=== PATIENT | female | born 1970 | race Caucasian/White ===

== ENCOUNTER → 2017-07-07 | Outpatient (CLI) | payer OTHER ==
--- NOTE | 2017-07-08 11:26 | MM ---
Reason for exam: screening (asymptomatic). Last mammogram was performed 1 year and 5 months ago. History: Patient is postmenopausal and has history of other cancer at age 35. Took hormonal contraceptives for 5 months beginning at age 20. Physical Findings: A clinical breast exam by your physician is recommended on an annual basis and results should be correlated with mammographic findings. MG Screening Mammo w CAD Bilateral CC and MLO view(s) were taken. Prior study comparison: February 01, 2016, bilateral MG screening mammo w CAD. September 19, 2008, right breast diagnostic digital ofe. There are scattered fibroglandular densities. There is chronic nodularity. There is no dominant lesion. No significant changes when compared with prior studies. ASSESSMENT: Benign, BI-RAD 2 RECOMMENDATION: Routine screening mammogram of both breasts in 1 year.
== END | disposition home or self-care (01) ==
LOC: RADMAMWWP 16:33
PROVIDERS: ATTEND Internal Medicine
DX: Z12.31 Encounter for screening mammogram for malignant neoplasm of breast (principal)
CPT/HCPCS: 77067

== ENCOUNTER 2017-07-29 10:26 | Day surgery (SDC) | payer OTHER ==
[2017-07-25 16:31] VITALS: BMI 37.1
[2017-07-29] MEDS ORDERED: LIDOCAINE 1% 20 ML VIAL (10MG/ML) FOR IV START INTRADERMA ONE (11:24)
[2017-07-29] MEDS: LACTATED RINGERS 1,000 ML IV SCH ×2 (11:24→12:22)
[2017-07-29 11:36] VITALS: RESP 16; TEMP 97
[2017-07-29] MEDS ORDERED: LIDOCAINE 1% INJ 10MG/ML (20 ML MDV) ONE (12:23)
[2017-07-29] MEDS ORDERED: PROPOFOL 10 MG/ML 20 ML VIAL IV ONE (12:23)
[2017-07-29] MEDS ORDERED: GLYCOPYRROLATE 0.2 MG/ML 2 ML VIAL ONE (12:23)
--- NOTE | 2017-07-29 13:12 | P.PCN ---
Date of Procedure: 07/29/17 Procedure(s) Performed: Procedure: 1. Esophagogastroduodenoscopy and biopsy. 2. Colonoscopy and biopsy. Preoperative diagnosis: Chronic diarrhea. Postoperative diagnosis: 1. Small sliding hiatal hernia with no obvious esophagitis or complicated reflux disease. 2. Mild gastritis and duodenitis. 3. Sigmoid diverticulosis but no evidence of diverticulitis or strictures. 4. 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 5. No polyps or tumors seen area biopsies obtained from the duodenum, antrum, esophagus, terminal ileum, right colon and sigmoid. Preparation: HalfLytely prep. Sedation: Was provided by anesthesia. Brief clinical history: The patient is a 47-year-old female who is scheduled for this evaluation because of issues with constant diarrhea over the last several months. Apparently, she had issues with diarrhea on and off since radiation therapy for cervical cancer several years ago, but this is now a constant daily problem. Procedure: With the patient on her left lateral decubitus position and after informed consent and adequate sedation, I passed the Olympus-GIF 160 video upper endoscope through the cricopharyngeus down the esophagus. GE junction was around 40 cm from the incisors and there was a small sliding hiatal hernia. No definite esophagitis or complicated reflux disease. The endoscope was then passed into the stomach which was insufflated with air and inspected in detail including the retroflex view in the cardia. There was some mottling and erythema in the antrum but no ulcers or erosions. Pyloric channel did not show any ulcers. Duodenal bulb showed erythema and some mucosal hemorrhages and a rare erosion but no ulcers or bleeding. Post bulbar area and descending duodenum appeared within normal limits. I obtained biopsies from the duodenum, antrum and esophagus then the endoscope was withdrawn and I proceeded with the colonoscopy. Perianal area did not show any fissures or fistulas. There were no masses felt on digital rectal examination. The Olympus CFQ 160L video colonoscope was then inserted in the rectum in the usual fashion and advanced, however, I was not able to advance it safely in the sigmoid so I exchanged it for the pediatric PCF Q180 AL videocolonoscope which was advanced without difficulty to the cecum. I intubated the ileocecal valve and examined the terminal ileum as well. There was mild sigmoid diverticulosis noted and some minimal erythema and friability in the sigmoid that could represent radiation colitis. No polyps or tumors were seen. I obtained biopsies from the terminal ileum, right colon and sigmoid before the endoscope was withdrawn. The patient tolerated the procedure well. Plan: The patient was reassured. Will await pathology results and make further plans based on her course and biopsy results. She will follow-up with you as planned and I will keep you updated on her progress.
[2017-07-29 13:39] VITALS: BP 153/70; PULSE 76
== END 2017-07-29 14:05 | disposition home or self-care (01) ==
LOC: ORWHC2ENDO 10:26
DX: K29.50 Unspecified chronic gastritis without bleeding (principal); K20.9 Esophagitis, unspecified; K52.9 Noninfective gastroenteritis and colitis, unspecified; K44.9 Diaphragmatic hernia without obstruction or gangrene; K57.30 Diverticulosis of large intestine without perforation or abscess without bleeding; K29.80 Duodenitis without bleeding; Z85.41 Personal history of malignant neoplasm of cervix uteri; Z92.3 Personal history of irradiation; Z88.0 Allergy status to penicillin; Z88.8 Allergy status to other drugs, medicaments and biological substances; F17.210 Nicotine dependence, cigarettes, uncomplicated
CPT/HCPCS: 88305; 45380; 43239; J2001; J2704

== ENCOUNTER → 2018-08-27 | Outpatient (CLI) | payer OTHER ==
--- NOTE | 2018-08-28 12:29 | MM ---
Reason for exam: screening (asymptomatic). Last mammogram was performed 1 year and 2 months ago. History: Patient is postmenopausal and has history of other cancer at age 35. Took hormonal contraceptives for 5 months beginning at age 20. Physical Findings: A clinical breast exam by your physician is recommended on an annual basis and results should be correlated with mammographic findings. MG Screening Mammo w CAD Bilateral CC and MLO view(s) were taken. Prior study comparison: July 07, 2017, bilateral MG screening mammo w CAD. February 01, 2016, bilateral MG screening mammo w CAD. There is chronic nodularity in the right breast. No significant changes when compared with prior studies. ASSESSMENT: Benign, BI-RAD 2 RECOMMENDATION: Routine screening mammogram of both breasts in 1 year.
== END | disposition home or self-care (01) ==
LOC: RADMAMWWP 14:44
PROVIDERS: ATTEND Internal Medicine
DX: Z12.31 Encounter for screening mammogram for malignant neoplasm of breast (principal)
CPT/HCPCS: 77067

== ENCOUNTER → 2020-03-24 | Outpatient (CLI) | payer OTHER ==
--- NOTE | 2020-03-24 17:44 | CT ---
EXAMINATION TYPE: CT abdomen pelvis w con DATE OF EXAM: 03/24/2020 COMPARISON: None HISTORY: Follow up for cervical cancer. CT DLP: 1784 mGycm Automated exposure control for dose reduction was used. TECHNIQUE: Helical acquisition of images was performed from the lung bases through the pelvis. CONTRAST: Performed with Oral Contrast and with IV Contrast, patient injected with 100ml mL of Isovue 300. FINDINGS: LUNG BASES: Normal. LIVER: Too small to characterize hypodense lesion of the left lobe (3:18). BILIARY SYSTEM: Status post cholecystectomy. No intrahepatic or extrahepatic biliary ductal dilatatio n. PANCREAS: Normal. SPLEEN: Normal. ADRENALS: Normal. KIDNEYS: No hydronephrosis or hydroureter bilaterally. Bilateral renal cysts and too small to charact erize hypodense lesions. BOWEL: No obstruction or thickening. There is mucosal fat the rectum which is likely related to post treatment change. Sigmoid colon diverticulosis. No acute diverticulitis. Normal appendix. PERITONEUM: No pneumoperitoneum. No free fluid. LYMPH NODES: No lymphadenopathy. PELVIS: Underdistended urinary bladder. Unremarkable uterus and adnexa. VASCULATURE: No abdominal aortic aneurysm. MUSCULOSKELETAL: Degenerative changes of the spine. No aggressive osseous destructive lesions. IMPRESSION: No evidence of recurrent or metastatic cervical cancer of the abdomen or pelvis.
== END | disposition home or self-care (01) ==
LOC: RADCTMAIN 13:50
PROVIDERS: ATTEND Obstetrics & Gynecology
DX: C53.9 Malignant neoplasm of cervix uteri, unspecified (principal)
CPT/HCPCS: 74177; Q9967

== ENCOUNTER → 2020-04-07 | Outpatient (CLI) | payer OTHER ==
--- NOTE | 2020-04-10 09:23 | MM ---
Reason for exam: screening (asymptomatic). Last mammogram was performed 1 year and 7 months ago. History: Patient is postmenopausal and has history of other cancer at age 35. Took hormonal contraceptives for 5 months beginning at age 20. Physical Findings: A clinical breast exam by your physician is recommended on an annual basis and results should be correlated with mammographic findings. MG Screening Mammo w CAD Bilateral CC and MLO view(s) were taken. Prior study comparison: August 27, 2018, bilateral MG screening mammo w CAD. July 07, 2017, bilateral MG screening mammo w CAD. There are scattered fibroglandular densities. Benign appearing calcifications in the left breast. There is chronic nodularity in the right breast. No significant changes when compared with prior studies. ASSESSMENT: Benign, BI-RAD 2 RECOMMENDATION: Routine screening mammogram of both breasts in 1 year.
== END | disposition home or self-care (01) ==
LOC: RADMAMWWP 10:38
PROVIDERS: ATTEND Obstetrics & Gynecology
DX: Z12.31 Encounter for screening mammogram for malignant neoplasm of breast (principal)
CPT/HCPCS: 77067

== ENCOUNTER → 2020-09-20 | Outpatient (CLI) | payer OTHER ==
--- NOTE | 2020-09-20 10:29 | XR ---
EXAMINATION TYPE: XR Hip Complete RT DATE OF EXAM: 09/20/2020 COMPARISON: NONE HISTORY: Pain TECHNIQUE: 2 views submitted FINDINGS: There is no evidence of erosive change or acute fracture. Small spur extending off the lower margin o f the greater trochanter. Nonspherical morphology of the femoral head can occasionally be associated with femoral acetabular impingement IMPRESSION: 1. Question femoral acetabular impingement consider follow-up.
== END | disposition home or self-care (01) ==
LOC: RADXRMAIN 10:04
PROVIDERS: ATTEND Family Medicine
DX: M25.551 Pain in right hip (principal)
CPT/HCPCS: 73502

== ENCOUNTER 2020-11-11 14:36 | Emergency (ER) | payer OTHER ==
[2020-11-11] MEDS ORDERED: ACET/COD 300 MG/30 MG STARTER PACK 6 TAB BTL PO STA (16:01)
--- NOTE | 2020-11-11 16:10 | ED ---
General Adult HPI - General Chief complaint: Urogenital Stated complaint: hamstring pain Source: patient, RN notes reviewed Mode of arrival: ambulatory Limitations: no limitations - History of Present Illness Initial comments: 50-year-old white female presents to the emergency room for refill on her hydrocodone. Patient states that she last had a prescription filled on October 18 and is out of medication. Patient states that Dr. Carrasco told her that she could take medication every 3 hours and now she is out. Motrin is not helping with her pain. Patient has a history of a vaginal tumor that is being addressed by [facility] and has scheduled appointments at the end of the month. Patient has an indwelling suprpubic catheter in place that was placed on october 04. Was seeing Dr. Carrasco but lost her insurance and is now assigned to Dr. Link who is unable to prescribe her any pain medications. Patient states that she's having difficulty sleeping at night because of the pain and needs something other than Motrin to help her. She denies fevers, no shortness of breath no chest pain or abdominal pain. She does state that her urine is more bloody today but has been already and then clear and then bloody again over the past month. She has a surgical history of a cholecystectomy and tubal ligation and is waiting for treatment of vaginal tumor. -: month(s) (1) Severity scale (1-10): 7 Consistency: constant Improves with: medication (norco) Worsens with: none Associated Symptoms: denies other symptoms Treatments Prior to Arrival: none - Related Data Home Medications Medication Instructions Recorded Confirmed Ergocalciferol [Vitamin D2] 50,000 unit PO FR 07/25/17 07/29/17 Previous Rx's Medication Instructions Recorded Sulfamethox-Tmp 800-160Mg [Bactrim 1 each PO Q12HR 10 Days #20 tab 11/11/20 Ds] Allergies Allergy/AdvReac Type Severity Reaction Status Date / Time cisplatin Allergy Anaphylaxis Verified 11/11/20 14:42 Penicillins Allergy Anaphylaxis Verified 11/11/20 14:42 Review of Systems ROS Statement: Those systems with pertinent positive or pertinent negative responses have been documented in the HPI. ROS Other: All systems not noted in ROS Statement are negative. Past Medical History Past Medical History: Cancer Additional Past Medical History / Comment(s): CERVICAL CANCER-CHEMO AND RADIATION 2006. HAS BEEN HAVING CHRONIC DIARRHEA FOR SEVERAL MONTHS History of Any Multi-Drug Resistant Organisms: None Reported Past Surgical History: Cholecystectomy, Tubal Ligation Past Anesthesia/Blood Transfusion Reactions: No Reported Reaction Past Psychological History: No Psychological Hx Reported Past Alcohol Use History: None Reported Past Drug Use History: None Reported - Past Family History Brother(s) Family Medical History: Cancer Father Family Medical History: Cancer General Exam Limitations: no limitations General appearance: alert, in no apparent distress Head exam: Present: atraumatic, normocephalic, normal inspection Eye exam: Present: normal appearance, PERRL, EOMI. Absent: scleral icterus, conjunctival injection, periorbital swelling Pupils: Present: normal accommodation ENT exam: Present: normal exam, normal oropharynx, mucous membranes moist Neck exam: Present: normal inspection. Absent: tenderness, meningismus, lymphadenopathy Respiratory exam: Present: normal lung sounds bilaterally, decreased breath sounds. Absent: respiratory distress, wheezes, rales, rhonchi, stridor, chest wall tenderness Cardiovascular Exam: Present: normal rhythm, tachycardia, normal heart sounds. Absent: systolic murmur, diastolic murmur, rubs, gallop, clicks GI/Abdominal exam: Present: soft, normal bowel sounds, other (Suprapubic Mcleod catheter, draining bloody urine). Absent: distended, tenderness, guarding, re bound, rigid Back exam: Present: normal inspection, full ROM. Absent: tenderness, CVA tenderness (R), CVA tenderness (L), muscle spasm, paraspinal tenderness, vertebral tenderness, rash noted Neurological exam: Present: alert, oriented X3, CN II-XII intact Expanded Patient oriented to: Present: person, place, time Speech: Present: fluid speech Eye Response: (4) open spontaneously Motor Response: (6) obeys commands Verbal Response: (5) oriented Pratima Total: 15 Psychiatric exam: Present: normal affect, normal mood Skin exam: Present: warm, dry, intact, normal color. Absent: rash, cyanosis, diaphoretic, erythema, petechiae, pallor, mottled Course Vital Signs 11/11/20 11/11/20 11/11/20 14:37 17:26 18:30 Temperature 98.1 F 98.3 F Pulse Rate 111 H 69 70 Respiratory 18 16 18 Rate Blood Pressure 190/101 159/83 169/98 O2 Sat by Pulse 99 98 98 Oximetry - Reevaluation(s) Reevaluation #1: 11/11/20 17:28 Patient offered morphine but declined at this time states she has to drive home. States she is not want to be admitted to the hospital Time: 17:28 Medical Decision Making - Medical Decision Making Patient able ambulate with a steady gait. 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 vaginal tumor is being addressed by [facility] in [address] and patient is waiting for her scheduled appointment dates. Patient is here today for refill of pain medication however upon exam, patient with hematuria and was sent for evaluation due to increased need for pain medication. She was found to have greater than 182 WBCs in her urine. CBC is 11.3 hemoglobin and hematocrit is 11 and 32. Patient will be treated with Bactrim for UTI. Restrictions for narcotic prescriptions explained to patient and advised that we will provide her with Tylenol 3 starter pack but she must follow up with primary care doctor for continuation of care. Patient agreeable to this plan. Patient will also be given a referral to pain specialist. Case discussed with Dr alexandre - Lab Data Result diagrams: 11/11/20 17:14 11/11/20 17:14 Lab Results 11/11/20 11/11/20 11/11/20 Range/Units 16:14 17:14 17:14 WBC 11.3 H (3.8-10.6) k/uL RBC 3.80 (3.80-5.40) m/uL Hgb 11.4 (11.4-16.0) gm/dL Hct 32.5 L (34.0-46.0) % MCV 85.6 (80.0-100.0) fL MCH 29.9 (25.0-35.0) pg MCHC 34.9 (31.0-37.0) g/dL RDW 13.8 (11.5-15.5) % Plt Count 342 (150-450) k/uL MPV 7.1 Neutrophils % 75 % Lymphocytes % 16 % Monocytes % 5 % Eosinophils % 3 % Basophils % 1 % Neutrophils # 8.4 H (1.3-7.7) k/uL Lymphocytes # 1.8 (1.0-4.8) k/uL Monocytes # 0.6 (0-1.0) k/uL Eosinophils # 0.4 (0-0.7) k/uL Basophils # 0.1 (0-0.2) k/uL PT (9.0-12.0) sec INR (<1.2) APTT (22.0-30.0) sec Sodium 141 (137-145) mmol/L Potassium 3.3 L (3.5-5.1) mmol/L Chloride 107 (98-107) mmol/L Carbon Dioxide 29 (22-30) mmol/L Anion Gap 5 mmol/L BUN 13 (7-17) mg/dL Creatinine 0.67 (0.52-1.04) mg/dL Est GFR (CKD-EPI)AfAm >90 (>60 ml/min/1.73 sqM) Est GFR (CKD-EPI)NonAf >90 (>60 ml/min/1.73 sqM) Glucose 97 (74-99) mg/dL Plasma Lactic Acid Wade (0.7-2.0) mmol/L Calcium 8.6 (8.4-10.2) mg/dL Total Bilirubin 0.3 (0.2-1.3) mg/dL AST 20 (14-36) U/L ALT 12 (4-34) U/L Alkaline Phosphatase 90 (38-126) U/L Total Protein 6.3 (6.3-8.2) g/dL Albumin 3.5 (3.5-5.0) g/dL Amylase 110 (30-110) U/L Lipase 60 (23-300) U/L Urine Color Red Urine Appearance Bloody H (Clear) Urine RBC >182 H (0-5) /hpf Urine WBC >182 H (0-5) /hpf 11/11/20 11/11/20 Range/Units 17:14 17:14 WBC (3.8-10.6) k/uL RBC (3.80-5.40) m/uL Hgb (11.4-16.0) gm/dL Hct (34.0-46.0) % MCV (80.0-100.0) fL MCH (25.0-35.0) pg MCHC (31.0-37.0) g/dL RDW (11.5-15.5) % Plt Count (150-450) k/uL MPV Neutrophils % % Lymphocytes % % Monocytes % % Eosinophils % % Basophils % % Neutrophils # (1.3-7.7) k/uL Lymphocytes # (1.0-4.8) k/uL Monocytes # (0-1.0) k/uL Eosinophils # (0-0.7) k/uL Basophils # (0-0.2) k/uL PT 11.3 (9.0-12.0) sec INR 1.1 (<1.2) APTT 23.0 (22.0-30.0) sec Sodium (137-145) mmol/L Potassium (3.5-5.1) mmol/L Chloride (98-107) mmol/L Carbon Dioxide (22-30) mmol/L Anion Gap mmol/L BUN (7-17) mg/dL Creatinine (0.52-1.04) mg/dL Est GFR (CKD-EPI)AfAm (>60 ml/min/1.73 sqM) Est GFR (CKD-EPI)NonAf (>60 ml/min/1.73 sqM) Glucose (74-99) mg/dL Plasma Lactic Acid Wade 1.2 (0.7-2.0) mmol/L Calcium (8.4-10.2) mg/dL Total Bilirubin (0.2-1.3) mg/dL AST (14-36) U/L ALT (4-34) U/L Alkaline Phosphatase (38-126) U/L Total Protein (6.3-8.2) g/dL Albumin (3.5-5.0) g/dL Amylase (30-110) U/L Lipase (23-300) U/L Urine Color Urine Appearance (Clear) Urine RBC (0-5) /hpf Urine WBC (0-5) /hpf Disposition Clinical Impression: Chronic pain, Urinary tract infection Disposition: HOME SELF-CARE Condition: Fair Instructions (If sedation given, give patient instructions): Urinary Tract Infection in Women (ED) Additional Instructions: Take medication as prescribed and follow-up with your primary care doctor this week. Call pain specialist as referred for continuation of pain management. Prescriptions: Sulfamethox-Tmp 800-160Mg [Bactrim Ds] 1 each PO Q12HR 10 Days #20 tab Is patient prescribed a controlled substance at d/c from ED?: No Referrals: Cristian Kennedy MD [Primary Care Provider] - 1-2 days Lucila Sims MD [STAFF PHYSICIAN] - 1-2 days Time of Disposition: 18:54
[2020-11-11 16:31] LABS: RBC,Urine >182 /hpf (0-5); WBC,Urine >182 /hpf (0-5)
[2020-11-11 16:32] LABS: Appearance,Urine Bloody (Clear); Color,Urine Red
[2020-11-11] MEDS ORDERED: SODIUM CHLORIDE 0.9% 1,000 ML IV STA (16:59)
[2020-11-11] MEDS ORDERED: KETOROLAC 15 MG/ML 1 ML VIAL IVP STA (17:27)
[2020-11-11] MEDS ORDERED: KETOROLAC 15 MG/ML 1 ML VIAL ONE (17:29)
[2020-11-11 17:35] LABS: Basophils # (A) 0.1 k/uL (0-0.2); Basophils % (A) 1 %; Eosinophils # (A) 0.4 k/uL (0-0.7); Eosinophils % (A) 3 %; HCT 32.5 % (34.0-46.0); HGB 11.4 gm/dL (11.4-16.0); Lymphocytes # (A) 1.8 k/uL (1.0-4.8); Lymphocytes % (A) 16 %; MCH 29.9 pg (25.0-35.0); MCHC 34.9 g/dL (31.0-37.0); MCV 85.6 fL (80.0-100.0); Mean Platelet Volume 7.1; Monocytes # (A) 0.6 k/uL (0-1.0); Monocytes % (A) 5 %; Neutrophils # (A) 8.4 k/uL (1.3-7.7); Neutrophils % (A) 75 %; Platelet Count 342 k/uL (150-450); RDW 13.8 % (11.5-15.5); WBC 11.3 k/uL (3.8-10.6)
[2020-11-11 17:48] LABS: INR 1.1 (<1.2); Prothrombin Time 11.3 sec (9.0-12.0)
[2020-11-11 17:51] LABS: ALT 12 U/L (4-34); AST 20 U/L (14-36); African American GFR (CKD) >90 (>60 ml/min/1.73 sqM); Albumin 3.5 g/dL (3.5-5.0); Alkaline Phosphatase 90 U/L (38-126); Amylase 110 U/L (30-110); Anion Gap 5 mmol/L; Blood Urea Nitrogen 13 mg/dL (7-17); Calcium 8.6 mg/dL (8.4-10.2); Carbon Dioxide 29 mmol/L (22-30); Chloride 107 mmol/L (98-107); Glucose 97 mg/dL (74-99); Lipase 60 U/L (23-300); Non-African American GFR(CKD) >90 (>60 ml/min/1.73 sqM); Potassium 3.3 mmol/L (3.5-5.1); Sodium 141 mmol/L (137-145); Total Bilirubin 0.3 mg/dL (0.2-1.3); Total Protein 6.3 g/dL (6.3-8.2)
[2020-11-11 18:32] VITALS: BP 169/98; PULSE 70; RESP 18; TEMP 98.3
== END 2020-11-11 19:05 | disposition home or self-care (01) ==
LOC: EC 14:36
DX: G89.29 Other chronic pain (principal); N39.0 Urinary tract infection, site not specified; Z88.0 Allergy status to penicillin; Z88.8 Allergy status to other drugs, medicaments and biological substances
CPT/HCPCS: 99283; 96374; 96361; 36415; 80053; 82150; 83605; 83690; 85025; 85610; 85730; 81001; 87086; J1885

== ENCOUNTER 2020-12-22 01:20 | Emergency (ER) | payer OTHER ==
[2020-12-22] MEDS ORDERED: HYDROmorphone 1 MG/ML 1 ML SYRINGE IM STA (02:04)
--- NOTE | 2020-12-22 02:07 | ED ---
General Adult HPI - General Chief complaint: Urogenital Stated complaint: Abd Pain Time Seen by Provider: 12/22/20 01:36 Source: patient, family Mode of arrival: ambulatory Limitations: no limitations - History of Present Illness Initial comments: 50 year-old female patient presents to the emergency department for evaluation of vaginal pain. 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 Patient states that she is out of her home pain medication. States that her physician gave her a new prescription but her pharmacy would not fill it until 01/02/21. Patient states that she has been taking 7 tablets per day to control her pain. States that she is now completely out and has a PET scan in the morning and does not feel that she will be able to tolerate the ride and testing without something for pain. Patient denies any change to her pain or new symptoms. States that [facility] in [place] will be formulating treatment plan after the PET scan. Denies any fever or chills. Denies nausea or vomiting. - Related Data Home Medications Medication Instructions Recorded Confirmed Ergocalciferol [Vitamin D2] 50,000 unit PO FR 07/25/17 07/29/17 Previous Rx's Medication Instructions Recorded Sulfamethox-Tmp 800-160Mg [Bactrim 1 each PO Q12HR 10 Days #20 tab 11/11/20 Ds] Allergies Allergy/AdvReac Type Severity Reaction Status Date / Time cisplatin Allergy Anaphylaxis Verified 12/22/20 01:27 Penicillins Allergy Anaphylaxis Verified 12/22/20 01:27 Sulfa (Sulfonamide Allergy Unknown Verified 12/22/20 01:27 Antibiotics) Review of Systems ROS Statement: Those systems with pertinent positive or pertinent negative responses have been documented in the HPI. ROS Other: All systems not noted in ROS Statement are negative. Past Medical History Past Medical History: Cancer Additional Past Medical History / Comment(s): CERVICAL CANCER-CHEMO AND RADIATION 2006. HAS BEEN HAVING CHRONIC DIARRHEA FOR SEVERAL MONTHS History of Any Multi-Drug Resistant Organisms: MRSA Date of last positivie culture/infection: 11/11/20 MDRO Source:: URINE MRSA Past Surgical History: Cholecystectomy, Tubal Ligation Past Anesthesia/Blood Transfusion Reactions: No Reported Reaction Past Psychological History: No Psychological Hx Reported Smoking Status: Current every day smoker Past Alcohol Use History: None Reported Past Drug Use History: Marijuana - Past Family History Brother(s) Family Medical History: Cancer Father Family Medical History: Cancer General Exam Limitations: no limitations General appearance: alert, in no apparent distress, other (Physical well- developed, well-nourished adult female patient in no acute distress. Vital signs upon presentation are temperature 98.3F, pulse 107, respirations 22, blood pressure 175/102, pulse ox 99% on room air.) Respiratory exam: Present: normal lung sounds bilaterally. Absent: respiratory distress, wheezes, rales, rhonchi, stridor Cardiovascular Exam: Present: regular rate, normal rhythm, normal heart sounds. Absent: systolic murmur, diastolic murmur, rubs, gallop, clicks GI/Abdominal exam: Present: soft, tenderness (Lower abdominal), normal bowel sounds, other (Suprapubic catheter). Absent: distended, guarding, rebound, r igid Neurological exam: Present: alert, oriented X3, CN II-XII intact Psychiatric exam: Present: normal affect, normal mood Skin exam: Present: warm, dry, intact, normal color. Absent: rash Course Vital Signs 12/22/20 12/22/20 01:22 02:24 Temperature 98.3 F Pulse Rate 107 H 84 Respiratory 22 18 Rate Blood Pressure 175/102 171/78 O2 Sat by Pulse 99 100 Oximetry Medical Decision Making - Medical Decision Making 50-year-old female patient presents requesting pain medication. Patient has known vaginal tumors currently being evaluated by [facility] for treatment. Patient is out of her home pain medication. Denies any new or concerning symptoms today. States she is here solely for pain medication so she is able to get to a PET scan appointment in the morning. Patient will be given 1 mg of Dil audid IM. We'll place fentanyl patch. I did have a long discussion with patient regarding fentanyl patch and the risks. She assures me she has indeed been taking the percocet as prescribed. This would make her opioid tolerant and there is minimal risk with the patch. She is instructed to follow-up with her primary care physician as soon as possible for further evaluation and to determine course of action regarding her pain. Return parameters are discussed in detail. She verbalizes understanding and agrees with this plan. Case discussed with my attending Dr. Jaimes. Disposition Clinical Impression: Vaginal pain, Medication refill Disposition: HOME SELF-CARE Condition: Good Instructions (If sedation given, give patient instructions): Chronic Pain (ED) Additional Instructions: Follow up with your primary care physician for recheck in 1-2 days. Return for any new, worsening, or concerning symptoms. Is patient prescribed a controlled substance at d/c from ED?: No Referrals: Ayush Carrasco Jr, [Primary Care Provider] - 1-2 days Time of Disposition: 02:07
[2020-12-22 02:26] VITALS: RESP 18
[2020-12-22 02:54] VITALS: BP 153/86; PULSE 78; TEMP 99.1
== END 2020-12-22 02:40 | disposition home or self-care (01) ==
LOC: EC 01:20
DX: R10.2 Pelvic and perineal pain (principal); F17.200 Nicotine dependence, unspecified, uncomplicated; Z76.0 Encounter for issue of repeat prescription; Z88.0 Allergy status to penicillin; Z88.2 Allergy status to sulfonamides; Z90.49 Acquired absence of other specified parts of digestive tract; Z88.8 Allergy status to other drugs, medicaments and biological substances
CPT/HCPCS: 96372; 99283

== ENCOUNTER 2020-12-24 21:40 | Emergency (ER) | payer OTHER ==
[2020-12-24 21:51] VITALS: BP 148/85; PULSE 118; RESP 20; TEMP 98.2
--- NOTE | 2020-12-24 22:02 | ED ---
Recheck HPI - General Chief Complaint: Recheck/Abnormal Lab/Rx Stated Complaint: Pain,Hx Malignant Tumor Time Seen by Provider: 12/24/20 21:52 Source: patient, family Mode of arrival: ambulatory Limitations: no limitations - History of Present Illness Initial Comments: 50-year-old female patient presents the emergency department today requesting a change to her fentanyl patch. 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 States she is out of her home pain medication. States her physician gave her new prescription but the pharmacy will not fill it until 01/02/21. She was seen here and evaluated early Friday morning but she hasn't been unable to contact her physician through the weekend so she is requesting another patch until she is able to see them tomorrow. Patient generally takes 7 Percocet tablets per day to control her pain. She is now completely out. She denies any change to her pain or new symptoms. States the fentanyl patch did help her pain. Denies any fever or chills. Denies nausea or vomiting. - Related Data Home Medications Medication Instructions Recorded Confirmed Ergocalciferol [Vitamin D2] 50,000 unit PO FR 07/25/17 07/29/17 Previous Rx's Medication Instructions Recorded Sulfamethox-Tmp 800-160Mg [Bactrim 1 each PO Q12HR 10 Days #20 tab 11/11/20 Ds] Allergies Allergy/AdvReac Type Severity Reaction Status Date / Time cisplatin Allergy Anaphylaxis Verified 12/22/20 01:27 Penicillins Allergy Anaphylaxis Verified 12/22/20 01:27 Sulfa (Sulfonamide Allergy Unknown Verified 12/22/20 01:27 Antibiotics) Review of Systems ROS Statement: Those systems with pertinent positive or pertinent negative responses have been documented in the HPI. ROS Other: All systems not noted in ROS Statement are negative. Past Medical History Past Medical History: Cancer Additional Past Medical History / Comment(s): CERVICAL CANCER-CHEMO AND RADIATION 2006. HAS BEEN HAVING CHRONIC DIARRHEA FOR SEVERAL MONTHS History of Any Multi-Drug Resistant Organisms: MRSA Date of last positivie culture/infection: 11/11/20 MDRO Source:: URINE MRSA Past Surgical History: Cholecystectomy, Tubal Ligation Past Anesthesia/Blood Transfusion Reactions: No Reported Reaction Past Psychological History: No Psychological Hx Reported Smoking Status: Current every day smoker Past Alcohol Use History: None Reported Past Drug Use History: Marijuana - Past Family History Brother(s) Family Medical History: Cancer Father Family Medical History: Cancer General Exam Limitations: no limitations General appearance: alert, in no apparent distress, other (Physical well- developed, well-nourished adult female patient in no acute distress. Vital signs upon presentation temperature 98.2F, pulse 118, respirations 20, blood pressure 148/85, pulse ox 95% on room air.) Eye exam: Present: normal appearance, PERRL, EOMI. Absent: scleral icterus, conjunctival injection, periorbital swelling ENT exam: Present: normal exam, normal oropharynx, mucous membranes moist Respiratory exam: Present: normal lung sounds bilaterally. Absent: respiratory distress, wheezes, rales, rhonchi, stridor Cardiovascular Exam: Present: regular rate, normal rhythm, normal heart sounds. Absent: systolic murmur, diastolic murmur, rubs, gallop, clicks GI/Abdominal exam: Present: soft, tenderness (Lower abdominal), normal bowel sounds. Absent: distended, guarding, rebound, rigid Neurological exam: Present: alert, oriented X3, CN II-XII intact Psychiatric exam: Present: normal affect, normal mood Skin exam: Present: warm, dry, intact, normal color. Absent: rash Course Vital Signs 12/24/20 21:45 Temperature 98.2 F Pulse Rate 118 H Respiratory 20 Rate Blood Pressure 148/85 O2 Sat by Pulse 95 Oximetry Medical Decision Making - Medical Decision Making 50-year-old female patient presented requesting change to fentanyl patch. She has known vaginal tumors currently being evaluated by [facility] for treatment. She is out of her pain medication. Denies any new or concerning symptoms today. She is here solely for pain medication until she is able to reach her physician in the morning. She is instructed to follow-up with her doctor as soon as possible. Return parameters discussed in detail. She verbalizes understanding and agrees with this plan. Case discussed with my attending Dr. Jaimes. Disposition Clinical Impression: Vaginal pain Disposition: HOME SELF-CARE Condition: Good Instructions (If sedation given, give patient instructions): Pain Management (ED) Additional Instructions: Follow-up with your primary care physician tomorrow. Return for any new, w orsening, or concerning symptoms. Is patient prescribed a controlled substance at d/c from ED?: No Referrals: Ayush Carrasco Jr, [Primary Care Provider] - 1-2 days Time of Disposition: 22:02
[2020-12-24] MEDS ORDERED: HYDROmorphone 1 MG/ML 1 ML SYRINGE IM STA (22:27)
== END 2020-12-24 22:37 | disposition home or self-care (01) ==
LOC: EC 21:40
DX: R10.2 Pelvic and perineal pain (principal); F17.200 Nicotine dependence, unspecified, uncomplicated; Z88.0 Allergy status to penicillin; Z88.2 Allergy status to sulfonamides; Z88.8 Allergy status to other drugs, medicaments and biological substances
CPT/HCPCS: 99283; 96372; J1170

== ENCOUNTER 2020-12-27 23:29 | Emergency (ER) | payer OTHER ==
[2020-12-27 23:43] VITALS: TEMP 98.8
--- NOTE | 2020-12-28 01:27 | ED ---
Recheck HPI - General Chief Complaint: Recheck/Abnormal Lab/Rx Stated Complaint: Recheck urogenital, pain rx refill Time Seen by Provider: 12/28/20 01:16 Source: patient Mode of arrival: ambulatory Limitations: no limitations - History of Present Illness Initial Comments: 50-year-old female patient presents to the emergency department today requesting an change to her fentanyl patch. Patient has vaginal pain with known vaginal tumor which is causing her pain. She follows with [facility] in [place]. States she is out of her home medication is waiting for her physician's office to give prior authorization for her prescriptions. States she was prescribed oxycodone and 100 g fentanyl patches 2 days ago. Patient states she is completely out of her Percocet at home. She denies any change to her pain or new symptoms. Denies any fever or chills. Denies nausea or vomiting. - Related Data Home Medications Medication Instructions Recorded Confirmed Ergocalciferol [Vitamin D2] 50,000 unit PO FR 07/25/17 07/29/17 Previous Rx's Medication Instructions Recorded Sulfamethox-Tmp 800-160Mg [Bactrim 1 each PO Q12HR 10 Days #20 tab 11/11/20 Ds] Allergies Allergy/AdvReac Type Severity Reaction Status Date / Time cisplatin Allergy Anaphylaxis Verified 12/27/20 23:40 Penicillins Allergy Anaphylaxis Verified 12/27/20 23:40 Sulfa (Sulfonamide Allergy Unknown Verified 12/27/20 23:40 Antibiotics) Review of Systems ROS Statement: Those systems with pertinent positive or pertinent negative responses have been documented in the HPI. ROS Other: All systems not noted in ROS Statement are negative. Past Medical History Past Medical History: Cancer Additional Past Medical History / Comment(s): CERVICAL CANCER-CHEMO AND RADIATION 2006. HAS BEEN HAVING CHRONIC DIARRHEA FOR SEVERAL MONTHS History of Any Multi-Drug Resistant Organisms: MRSA Date of last positivie culture/infection: 11/11/20 MDRO Source:: URINE MRSA Past Surgical History: Cholecystectomy, Tubal Ligation Past Anesthesia/Blood Transfusion Reactions: No Reported Reaction Past Psychological History: No Psychological Hx Reported Smoking Status: Current every day smoker Past Alcohol Use History: None Reported Past Drug Use History: Marijuana - Past Family History Brother(s) Family Medical History: Cancer Father Family Medical History: Cancer General Exam Limitations: no limitations General appearance: alert, in no apparent distress, other (Physical well- developed, well-nourished adult female patient in no acute distress. Vital signs upon presentation are temperature 98.8F, pulse 107, respirations 20, blood pressure 120/71, pulse ox 98% on room air.) Eye exam: Present: normal appearance, PERRL, EOMI. Absent: scleral icterus, conjunctival injection, periorbital swelling ENT exam: Present: normal exam, normal oropharynx, mucous membranes moist Respiratory exam: Present: normal lung sounds bilaterally. Absent: respiratory distress, wheezes, rales, rhonchi, stridor Cardiovascular Exam: Present: regular rate, normal rhythm, normal heart sounds. Absent: systolic murmur, diastolic murmur, rubs, gallop, clicks GI/Abdominal exam: Present: soft, normal bowel sounds, other (Suprapubic catheter noted). Absent: distended, tenderness, guarding, rebound, rigid Neurological exam: Present: alert, oriented X3, CN II-XII intact Psychiatric exam: Present: normal affect, normal mood Skin exam: Present: warm, dry, intact, normal color. Absent: rash Course Vital Signs 12/27/20 12/28/20 23:40 02:08 Temperature 98.8 F Pulse Rate 107 H 74 Respiratory 20 16 Rate Blood Pressure 120/71 121/69 O2 Sat by Pulse 98 99 Oximetry Medical Decision Making - Medical Decision Making 50-year-old female patient presents to the emergency department requesting change to her fentanyl patch. Patient is out of home pain medication is awaitin g her physician's office and the pharmacy to get prior authorization for her new prescriptions for oxycodone and fentanyl patch. Patient does not have any pain medication at home. Has known vaginal tumor. I did discuss with her that fentanyl patches are generally not given in the emergency department and was done so on the 2 previous occasions to help her out. Since she does have prescriptions awaiting prior authorization I informed her that we will order one last patch for her. I informed her that she will not receive additional patches from the emergency department. She is instructed to call her doctor's office first thing in the morning to determine status of prior authorization. Patient is agreeable with this plan. Case discussed with my attending Dr. Palacios. Disposition Clinical Impression: Vaginal pain Disposition: HOME SELF-CARE Condition: Good Instructions (If sedation given, give patient instructions): Chronic Pain (ED) Additional Instructions: Call physician's office in the morning for further info regarding pain medications. Return for any new, worsening, or concerning symptoms. Is patient prescribed a controlled substance at d/c from ED?: No Referrals: Ayush Carrasco Jr, DO [Primary Care Provider] - 1-2 days Time of Disposition: 01:26
[2020-12-28 02:09] VITALS: BP 121/69; PULSE 74; RESP 16
== END 2020-12-28 02:09 | disposition home or self-care (01) ==
LOC: EC 23:29
DX: R10.2 Pelvic and perineal pain (principal); F17.200 Nicotine dependence, unspecified, uncomplicated; Z88.0 Allergy status to penicillin; Z88.2 Allergy status to sulfonamides; Z88.8 Allergy status to other drugs, medicaments and biological substances
CPT/HCPCS: 99284

== ENCOUNTER 2021-03-14 | Inpatient (IN) | payer OTHER ==
[2021-03-14] MEDS ORDERED: SODIUM CHLORIDE 0.9% 1,000 ML IV STA (00:25)
--- NOTE | 2021-03-14 00:39 | ED ---
Nausea/Vomiting/Diarrhea HPI - General Chief complaint: Nausea/Vomiting/Diarrhea Stated complaint: NVD Time Seen by Provider: 03/14/21 00:13 Source: patient, EMS Mode of arrival: ambulatory - History of Present Illness Initial comments: 50 year-old female patient presents to the emergency department for evaluation of nausea and vomiting. States she has persistent nausea and vomiting but her symptoms have been getting worse. She ran out of her zofran at home. Patient has cervical cancer with local invasion and metastasis. She is currently receiving radiation and they are going to be starting chemotherapy soon. Her oncologist is Dr. Guzman at [facility] in [place]. She denies any fever or chills. Denies any diarrhea or constipation. Patient denies any recent rash, cough, shortness of breath, chest pain, back pain, numbness, tingling, dizziness, weakness, hematuria, dysuria, urinary urgency, urinary frequency, headache, visual changes, or any other complaints. - Related Data Home Medications Medication Instructions Recorded Confirmed fentaNYL 100MCG/HR PATCH 100 mcg TRANSDERM Q72H 03/14/21 03/14/21 [Duragesic 100MCG/HR] oxyCODONE HCL [oxyCODONE HCL (IR)] 10 mg PO Q6H PRN 03/14/21 03/14/21 Allergies Allergy/AdvReac Type Severity Reaction Status Date / Time cisplatin Allergy Anaphylaxis Verified 12/27/20 23:40 Penicillins Allergy Anaphylaxis Verified 12/27/20 23:40 Sulfa (Sulfonamide Allergy Unknown Verified 12/27/20 23:40 Antibiotics) Review of Systems ROS Statement: Those systems with pertinent positive or pertinent negative responses have been documented in the HPI. ROS Other: All systems not noted in ROS Statement are negative. Past Medical History Past Medical History: Cancer Additional Past Medical History / Comment(s): CERVICAL CANCER-CHEMO AND RADIATION 2006. HAS BEEN HAVING CHRONIC DIARRHEA FOR SEVERAL MONTHS History of Any Multi-Drug Resistant Organisms: MRSA Date of last positivie culture/infection: 11/11/20 MDRO Source:: URINE MRSA Past Surgical History: Cholecystectomy, Tubal Ligation Past Anesthesia/Blood Transfusion Reactions: No Reported Reaction Past Psychological History: No Psychological Hx Reported Smoking Status: Current every day smoker Past Alcohol Use History: None Reported Past Drug Use History: Marijuana - Past Family History Brother(s) Family Medical History: Cancer Father Family Medical History: Cancer General Exam General appearance: alert, in no apparent distress, other (This is a well- developed, well-nourished adult female patient.) ENT exam: Present: normal exam, normal oropharynx, mucous membranes moist Respiratory exam: Present: normal lung sounds bilaterally. Absent: respiratory distress, wheezes, rales, rhonchi, stridor Cardiovascular Exam: Present: regular rate, normal rhythm, normal heart sounds. Absent: systolic murmur, diastolic murmur, rubs, gallop, clicks GI/Abdominal exam: Present: soft, normal bowel sounds. Absent: distended, tenderness, guarding, rebound, rigid Neurological exam: Present: alert, oriented X3, CN II-XII intact Psychiatric exam: Present: normal affect, normal mood Skin exam: Present: warm, dry, intact, normal color. Absent: rash Course Vital Signs 03/14/21 00:10 Temperature 98.2 F Pulse Rate 90 Respiratory 20 Rate Blood Pressure 157/84 O2 Sat by Pulse 99 Oximetry Medical Decision Making - Medical Decision Making 50-year-old female patient presents to the emergency department today for evaluation of nausea and vomiting. She has invasive cervical cancer has been receiving radiation. Has not yet started chemo. IV was inserted. Labs reviewed and did reveal elevated white blood cell count at 18.2, sodium 128, potassium 5.5, chloride 97, BUN 59, creatinine 2.34. Kidney injury is new. She does have indwelling Mcleod catheter states it has been not draining for about a week. States she has been urinating around it. We will insert new mcleod catheter and send urine sample. She will be admitted for acute kidney injury, dehydration, vomiting, and leukocytosis. Possibly UTI pending urinalysis. Case was discussed with my attending Dr. Jaimes. - Lab Data Result diagrams: 03/14/21 01:18 03/14/21 01:18 Lab Results 03/14/21 03/14/21 Range/Units 01:18 01:18 WBC 18.2 H (3.8-10.6) k/uL RBC 4.44 (3.80-5.40) m/uL Hgb 11.6 (11.4-16.0) gm/dL Hct 35.2 (34.0-46.0) % MCV 79.2 L (80.0-100.0) fL MCH 26.1 (25.0-35.0) pg MCHC 33.0 (31.0-37.0) g/dL RDW 16.3 H (11.5-15.5) % Plt Count 535 H (150-450) k/uL MPV 7.8 Neutrophils % 91 % Lymphocytes % 4 % Monocytes % 3 % Eosinophils % 1 % Basophils % 1 % Neutrophils # 16.5 H (1.3-7.7) k/uL Lymphocytes # 0.7 L (1.0-4.8) k/uL Monocytes # 0.6 (0-1.0) k/uL Eosinophils # 0.2 (0-0.7) k/uL Basophils # 0.1 (0-0.2) k/uL Anisocytosis Slight Microcytosis Slight Sodium 128 L (137-145) mmol/L Potassium 5.5 H (3.5-5.1) mmol/L Chloride 97 L (98-107) mmol/L Carbon Dioxide 17 L (22-30) mmol/L Anion Gap 14 mmol/L BUN 59 H (7-17) mg/dL Creatinine 2.34 H (0.52-1.04) mg/dL Est GFR (CKD-EPI)AfAm 27 (>60 ml/min/1.73 sqM) Est GFR (CKD-EPI)NonAf 23 (>60 ml/min/1.73 sqM) Glucose 103 H (74-99) mg/dL Calcium 9.4 (8.4-10.2) mg/dL Magnesium 2.0 (1.6-2.3) mg/dL Total Bilirubin 0.9 (0.2-1.3) mg/dL AST 30 (14-36) U/L ALT 15 (4-34) U/L Alkaline Phosphatase 127 H (38-126) U/L Total Protein 7.3 (6.3-8.2) g/dL Albumin 3.4 L (3.5-5.0) g/dL Lipase 57 (23-300) U/L Disposition Clinical Impression: Acute kidney injury, Dehydration, Vomiting Disposition: ADMITTED IP TO THIS [facility] Condition: Serious Referrals: Ayush Carrasco Jr, [Primary Care Provider] - 1-2 days Decision to Admit Reason: Admit from EC Decision Date: 03/14/21 Decision Time: 02:29
[2021-03-14 01:47] LABS: Anisocytosis Slight; Basophils # (A) 0.1 k/uL (0-0.2); Basophils % (A) 1 %; Eosinophils # (A) 0.2 k/uL (0-0.7); Eosinophils % (A) 1 %; HCT 35.2 % (34.0-46.0); HGB 11.6 gm/dL (11.4-16.0); Lymphocytes # (A) 0.7 k/uL (1.0-4.8); Lymphocytes % (A) 4 %; MCH 26.1 pg (25.0-35.0); MCV 79.2 fL (80.0-100.0); Mean Platelet Volume 7.8; Microcytosis Slight; Monocytes # (A) 0.6 k/uL (0-1.0); Monocytes % (A) 3 %; Neutrophils # (A) 16.5 k/uL (1.3-7.7); Neutrophils % (A) 91 %; Platelet Count 535 k/uL (150-450); RBC 4.44 m/uL (3.80-5.40); RDW 16.3 % (11.5-15.5); WBC 18.2 k/uL (3.8-10.6)
[2021-03-14 02:08] LABS: Albumin 3.4 g/dL (3.5-5.0); Calcium 9.4 mg/dL (8.4-10.2); Potassium 5.5 mmol/L (3.5-5.1); Total Bilirubin 0.9 mg/dL (0.2-1.3); Total Protein 7.3 g/dL (6.3-8.2)
[2021-03-14] MEDS ORDERED: SODIUM CHLORIDE 0.9% 1,000 ML IV ONE (02:22)
[2021-03-14] MEDS ORDERED: ONDANSETRON 4 MG/2 ML VIAL IVP PRN (02:29)
[2021-03-14] MEDS ORDERED: NALOXONE 0.4 MG/ML 1 ML VIAL IV PRN (02:29)
[2021-03-14] MEDS ORDERED: HYDROmorphone 1 MG/ML 1 ML SYRINGE IVP STA (02:34)
[2021-03-14] MEDS: SODIUM CHLORIDE 0.9% 1,000 ML IV SCH ×3 (02:42→19:18)
[2021-03-14] MEDS ORDERED: LIDOCAINE URO-JET JELLY 2% 5 ML KIT URETHRAL ONE (02:49)
--- NOTE | 2021-03-14 04:08 | CT ---
EXAMINATION TYPE: CT abdomen pelvis wo con DATE OF EXAM: 03/14/2021 COMPARISON: 03/24/2020 HISTORY: abd. pain CT DLP: 535.5 mGycm Automated exposure control for dose reduction was used. Images obtained from the diaphragm to the floor the pelvis without contrast. Lung bases are clear. There is no pleural effusion. Heart size is normal. There is no pericardial eff usion. Liver spleen stomach pancreas appear intact. There are clips from cholecystectomy. The bile ducts are not dilated. There is no adrenal mass. Kidneys have normal size. There is bilateral hydronephrosis and hydroureter . The urinary bladder is almost empty. There is some calcific mass density at the floor the pelvis at the base of the urinary bladder and at the vagina. This has mixed attenuation with calcium and also lower attenuation. The area measures approximately 6 x 3 cm. I do not see a definite ureteral calculu s. There is no inguinal hernia. There is no free fluid in the pelvis. There is no sign of thickened a ppendix. Appendix not clearly seen. There is no ascites or free air. There is no sign of a bowel obst ruction. Lumbar vertebra have normal alignment. Posterior elements are intact. There is no compression fractur e. Bony pelvis is intact. The hip joints are intact. IMPRESSION: Complex mass at the floor the pelvis consistent with tumor in this patient with a history of cervical cancer. There is mild hydronephrosis and hydroureter. This could relate to tumor involvement of the distal ureters. Pelvic mass appears new compared to old exam.
--- NOTE | 2021-03-14 13:08 | P.OBCN ---
History of Present Illness Consult date: 03/14/21 Reason for consult: other (Known diagnosis of cervical cancer, at least stage III) History of present illness: The patient is a 50-year-old 3 para 2011 admitted through the emergency room with significantly worsening nausea and vomiting. She carries a diagnosis of cervical cancer diagnosed last spring with biopsy at [facility] in [place]. She has been under the care of a [facility] [employer] oncologist, Dr. Guzman. She reports she has 1 further radiation treatment of the scheduled which is to be done at this facility and then she is to begin chemotherapy to follow. She currently has no ongoing vaginal bleeding and most for symptoms are GI in nature. The computed tomography scan of the pelvis demonstrates a large b ulky tumor which may be involving the ureters as there is hydroureter present. Obstetrical history: 3 para 2011 with 2 term vaginal deliveries. Gynecologic history: Confined to history of present illness. Review of Systems Review of systems is confined to history of present illness. Past Medical History Past Medical History: Cancer Additional Past Medical History / Comment(s): CERVICAL CANCER-CHEMO AND RADIATION 2006. HAS BEEN HAVING CHRONIC DIARRHEA FOR SEVERAL MONTHS History of Any Multi-Drug Resistant Organisms: MRSA Year Discovered:: 11/11/20 MDRO Source:: URINE MRSA Past Surgical History: Cholecystectomy, Tubal Ligation Past Anesthesia/Blood Transfusion Reactions: No Reported Reaction Past Psychological History: No Psychological Hx Reported Smoking Status: Current every day smoker Past Alcohol Use History: None Reported Past Drug Use History: Marijuana - Past Family History Brother(s) Family Medical History: Cancer Father Family Medical History: Cancer Medications and Allergies Home Medications Medication Instructions Recorded Confirmed Type fentaNYL 100MCG/HR PATCH 1 patch TRANSDERM Q72H 03/14/21 03/14/21 History [Duragesic 100MCG/HR] oxyCODONE HCL [oxyCODONE HCL (IR)] 10 mg PO Q6H PRN 03/14/21 03/14/21 History Allergies Allergy/AdvReac Type Severity Reaction Status Date / Time cisplatin Allergy Anaphylaxis Verified 03/14/21 06:34 Penicillins Allergy Anaphylaxis Verified 03/14/21 06:34 Sulfa (Sulfonamide Allergy Unknown Verified 03/14/21 06:34 Antibiotics) Exam Vital Signs Temp Pulse Pulse Resp BP BP Pulse Ox 03/14/21 12:46 98 F 79 16 145/83 97 03/14/21 06:30 97.2 F L 78 18 148/80 99 03/14/21 05:00 15 03/14/21 04:00 18 03/14/21 02:44 94 18 161/93 95 03/14/21 00:10 98.2 F 90 20 157/84 99 Intake and Output 03/13/21 03/14/21 03/14/21 22:59 06:59 14:59 Other: Voiding Method Diaper Incontinent Weight 70.307 kg Exam is deferred given her known diagnosis. Results Result Diagrams: 03/14/21 01:18 03/14/21 01:18 Abnormal Lab Results - Last 24 Hours (Table) 03/14/21 03/14/21 Range/Units 01:18 01:18 WBC 18.2 H (3.8-10.6) k/uL MCV 79.2 L (80.0-100.0) fL RDW 16.3 H (11.5-15.5) % Plt Count 535 H (150-450) k/uL Neutrophils # 16.5 H (1.3-7.7) k/uL Lymphocytes # 0.7 L (1.0-4.8) k/uL Sodium 128 L (137-145) mmol/L Potassium 5.5 H (3.5-5.1) mmol/L Chloride 97 L (98-107) mmol/L Carbon Dioxide 17 L (22-30) mmol/L BUN 59 H (7-17) mg/dL Creatinine 2.34 H (0.52-1.04) mg/dL Glucose 103 H (74-99) mg/dL Alkaline Phosphatase 127 H (38-126) U/L Albumin 3.4 L (3.5-5.0) g/dL Assessment and Plan (1) Cervical cancer Current Visit: Yes Status: Acute Code(s): C53.9 - MALIGNANT NEOPLASM OF CERVIX UTERI, UNSPECIFIED SNOMED Code(s): 565230225 (2) Acute kidney injury Current Visit: Yes Status: Acute Code(s): N17.9 - ACUTE KIDNEY FAILURE, UNSPECIFIED SNOMED Code(s): 39270717 (3) Dehydration Current Visit: Yes Status: Acute Code(s): E86.0 - DEHYDRATION SNOMED Code(s): 72478090 (4) Vomiting Current Visit: Yes Status: Acute Code(s): R11.10 - VOMITING, UNSPECIFIED SNOMED Code(s): 639550405 Plan: I have some significant concern that the ureters may be involved in the tumor mass given her elevated BUN/creatinine as well as the findings on computed tomography scan with hydroureter present. There is nothing for benign gynecology to offer in this unfortunate case. She may benefit from placement of ureteral stents in order to have continued regular kidney function. If they're unable to be placed, the patient will begin to suffer from significant uremia which may be the source of her ongoing nausea and vomiting at this time. It is unclear as to whether [employer] oncology would be better able to handle the current situation. If so, transferred to their facility would be preferable. I will sign off of this consult at this time unless further recommendations from benign gynecology are required.
[2021-03-14] MEDS: ONDANSETRON 4 MG/2 ML VIAL IVP PRN ×2 (13:50→19:31)
--- NOTE | 2021-03-14 14:04 | P.HPIM ---
History of Present Illness H&P Date: 03/14/21 Chief Complaint: Worsening nausea vomiting, weakness This is a 50-year-old female with history of cervical cancer, status post chemoradiation, chronic diarrhea, history of MRSA, ongoing nicotine dependence, marijuana use and multiple other medical issues. Reports she follows with oncologist, Dr. Guzman at [facility], last radiation treatment Friday. Nausea worsened accompanied by increased weakness. Patient had fired [place] and reports suprapubic catheter last changed 3-4 weeks ago and has not been draining 1 week.Reports she ran out of her nausea pills. Denies pain states controlled on current home meds regimen. Denies any fever or chills. Denies any cough chest pain or shortness of breath. Denies any lightheadedness dizziness or focal deficits. CT of abdomen and pelvis reported new pelvic mass consistent with tumor in a patient with history of cervical cancer, mild hydronephrosis and hydroureter, tumor involvement possible of the distal ureters. Afebrile, WBC 18.2. Hemoglobin 11.6, platelets 335, sodium 128, potassium 5.5, BUN 59, creatinine 2.34, albumin 3.4. Review of Systems ROS Statement: Those systems with pertinent positive or pertinent negative responses have been documented in the HPI. ROS Other: All systems not noted in ROS Statement are negative. Past Medical History Past Medical History: Cancer Additional Past Medical History / Comment(s): CERVICAL CANCER-CHEMO AND RADIATION 2006. HAS BEEN HAVING CHRONIC DIARRHEA FOR SEVERAL MONTHS History of Any Multi-Drug Resistant Organisms: MRSA Date of last positivie culture/infection: 11/11/20 MDRO Source:: URINE MRSA Past Surgical History: Cholecystectomy, Tubal Ligation Past Anesthesia/Blood Transfusion Reactions: No Reported Reaction Past Psychological History: No Psychological Hx Reported Smoking Status: Current every day smoker Past Alcohol Use History: None Reported Past Drug Use History: Marijuana - Past Family History Brother(s) Family Medical History: Cancer Father Family Medical History: Cancer Medications and Allergies Home Medications Medication Instructions Recorded Confirmed Type fentaNYL 100MCG/HR PATCH 1 patch TRANSDERM Q72H 03/14/21 03/14/21 History [Duragesic 100MCG/HR] oxyCODONE HCL [oxyCODONE HCL (IR)] 10 mg PO Q6H PRN 10/20/21 10/20/21 History Allergies Allergy/AdvReac Type Severity Reaction Status Date / Time cisplatin Allergy Anaphylaxis Verified 03/14/21 06:34 Penicillins Allergy Anaphylaxis Verified 03/14/21 06:34 Sulfa (Sulfonamide Allergy Unknown Verified 03/14/21 06:34 Antibiotics) Physical Exam Vitals: Vital Signs Temp Pulse Resp BP Pulse Ox 03/14/21 06:30 97.2 F L 78 18 148/80 99 03/14/21 05:00 15 03/14/21 04:00 18 03/14/21 02:44 94 18 161/93 95 03/14/21 00:10 98.2 F 90 20 157/84 99 Intake and Output 03/13/21 03/14/21 03/14/21 22:59 06:59 14:59 Other: Voiding Method Diaper Incontinent Weight 70.307 kg PHYSICAL EXAM: VITAL SIGNS: [As above] GENERAL: Sitting up in bed, no acute distress HEENT: Conjunctivae normal. eyes normal. Oral mucosa dry NECK: No JVD. No thyroid enlargement. No LNs CARDIOVASCULAR: S1, S2 regular.. No murmur RESPIRATION: Breath sounds diminished in the bases. No rhonchi or crackles. No bronchial breathing. ABDOMEN: Soft, nontender . No guarding. no masses palpable. No ascites, No hepatosplenomegaly.Bowel sounds heard. LEGS: No edema. no swelling PSYCHIATRY: Alert and oriented X3, mood and affect flat. NERVOUS SYSTEM: Cranial N 2-12 grossly normal. Moves all 4 limbs. Diffuse weakness ,No focal deficits. Strength and sensation grossly intact. Skin: Warm and dry, no rash Results CBC & Chem 7: 03/14/21 01:18 03/14/21 01:18 Labs: Abnormal Lab Results - Last 24 Hours (Table) 03/14/21 03/14/21 Range/Units 01:18 01:18 WBC 18.2 H (3.8-10.6) k/uL MCV 79.2 L (80.0-100.0) fL RDW 16.3 H (11.5-15.5) % Plt Count 535 H (150-450) k/uL Neutrophils # 16.5 H (1.3-7.7) k/uL Lymphocytes # 0.7 L (1.0-4.8) k/uL Sodium 128 L (137-145) mmol/L Potassium 5.5 H (3.5-5.1) mmol/L Chloride 97 L (98-107) mmol/L Carbon Dioxide 17 L (22-30) mmol/L BUN 59 H (7-17) mg/dL Creatinine 2.34 H (0.52-1.04) mg/dL Glucose 103 H (74-99) mg/dL Alkaline Phosphatase 127 H (38-126) U/L Albumin 3.4 L (3.5-5.0) g/dL Assessment and Plan Assessment: Acute renal failure secondary to obstructed SP catheter. Patient fired Causes, reports last changed to 4 weeks ago, not draining 1 week. Possible Sepsis secondary to Acute UTI, culture pending Leukocytosis Dehydration secondary to nausea, Hyperkalemia secondary to acute renal failure History of cervical cancer New pelvic mass reported per CT, with mild hydronephrosis and hydroureter, possibly related to tumor involvement of the distal ureters Ongoing nicotine dependence Marijuana use Plan: Continue current medication regime ,monitoring and symptomatic treatment. Maintain IV antibiotic treatment for UTI, IV fluid hydration. Pain management- home medications resumed. Urology, [employer], oncology, Rad oncology consulted. Suprapubic catheter be changed per urology with urine culture to be obtained once catheter changed. Discussed transfer to tertiary center, [facility]/Dr. Guzman with ed case manager-in progress. manager content consulted regarding personal/social issues-patient will require Super Vitamin D care ralali for regular changing of SP catheter-reinforced with patient The impression and plan of care has been dictated as directed. : I performed a history and examination of this patient, discussed the same with the dictator. I agree with the dictator's note ,documented as a scribe. Any additional findings or plans will be noted.
--- NOTE | 2021-03-14 16:24 | P.GSCN ---
History of Present Illness Consult date: 03/14/21 History of present illness: 50-year-old female with advanced cervical cancer being treated with radiation and chemotherapy, most in [place] by Dr. Guzman. He was [place] this past spring with [place] [facility] [place] [facility] [place] she eventually was referred to Dr. Guzman for treatment. She has been undergoing radiation therapy and is to start chemotherapy. Presented to our hospital with nausea vomiting and diarrhea. The patient apparently has 1 or 2 more radiation treatments and then is to get chemotherapy. He states that she has had her patient therapy here in [place]. For some reason a suprapubic tube was placed at [facility]. The patient is not clear as to why nor do I have any information that suggest why. She states that she was urinating okay prior to all this. The suprapubic tube initially was checked and exchanged one time at [facility] and then subsequently has been exchanged by visiting nurses. In the last few weeks there been problems. Apparently the catheter has not been draining and she has been incontinent per urethra. While in the emergency room they attempted to change the catheter. It did not seem to work. She's actually stated that when the pass a catheter came out through her vagina. Whether it was the urethra or the vagina is uncertain. A shunt has been continuously incontinent since the catheter has been out. The patient had a computed tomography scan identifying bilateral mild to moderate hydronephrosis. This is probably due to extrinsic compression of the cervical carcinoma on the posterior bladder wall. Whether there is a vesicovaginal fistula I cannot answer at this point in time. Review of Systems - Constitutional Reports anorexia, Reports lethargy, Reports weight loss - Gastrointestinal Reports abdominal pain - Genitourinary Genitourinary: Reports mixed incontinence Past Medical History Past Medical History: Cancer Additional Past Medical History / Comment(s): CERVICAL CANCER-CHEMO AND RADIATION History of Any Multi-Drug Resistant Organisms: MRSA Year Discovered:: 11/11/20 MDRO Source:: URINE MRSA Past Surgical History: Cholecystectomy, Tubal Ligation Past Anesthesia/Blood Transfusion Reactions: No Reported Reaction Past Psychological History: No Psychological Hx Reported Smoking Status: Former smoker Past Alcohol Use History: None Reported Past Drug Use History: Marijuana - Past Family History Brother(s) Family Medical History: Cancer Father Family Medical History: Cancer Medications and Allergies Home Medications Medication Instructions Recorded Confirmed Type fentaNYL 100MCG/HR PATCH 1 patch TRANSDERM Q72H 03/14/21 03/14/21 History [Duragesic 100MCG/HR] oxyCODONE HCL [oxyCODONE HCL (IR)] 10 mg PO Q6H PRN 03/14/21 03/14/21 History Allergies Allergy/AdvReac Type Severity Reaction Status Date / Time cisplatin Allergy Anaphylaxis Verified 03/14/21 06:34 Penicillins Allergy Anaphylaxis Verified 03/14/21 06:34 Sulfa (Sulfonamide Allergy Unknown Verified 03/14/21 06:34 Antibiotics) Surgical - Exam Vital Signs Temp Pulse Resp BP Pulse Ox 98.2 F 90 20 157/84 99 03/14/21 00:10 03/14/21 00:10 03/14/21 00:10 03/14/21 00:10 03/14/21 00:10 - General well developed, chronically ill - Eyes PERRL - ENT no hearing loss - Neck trachea midline - Respiratory normal expansion, normal respiratory effort - Cardiovascular Rhythm: regular - Abdomen Abdomen: soft, non tender - Genitourinary There is a suprapubic opening that is not draining. She is incontinent in the diaper. - Neurologic normal coordination - Musculoskeletal normal posture - Psychiatric oriented to time, oriented to person, oriented to place, speech is normal, memory intact Results - Labs 03/14/21 01:18 03/14/21 01:18 Abnormal Lab Results - Last 24 Hours (Table) 03/14/21 03/14/21 Range/Units 01:18 01:18 WBC 18.2 H (3.8-10.6) k/uL MCV 79.2 L (80.0-100.0) fL RDW 16.3 H (11.5-15.5) % Plt Count 535 H (150-450) k/uL Neutrophils # 16.5 H (1.3-7.7) k/uL Lymphocytes # 0.7 L (1.0-4.8) k/uL Sodium 128 L (137-145) mmol/L Potassium 5.5 H (3.5-5.1) mmol/L Chloride 97 L (98-107) mmol/L Carbon Dioxide 17 L (22-30) mmol/L BUN 59 H (7-17) mg/dL Creatinine 2.34 H (0.52-1.04) mg/dL Glucose 103 H (74-99) mg/dL Alkaline Phosphatase 127 H (38-126) U/L Albumin 3.4 L (3.5-5.0) g/dL Diabetes panel 03/14/21 Range/Units 01:18 Sodium 128 L (137-145) mmol/L Potassium 5.5 H (3.5-5.1) mmol/L Chloride 97 L (98-107) mmol/L Carbon Dioxide 17 L (22-30) mmol/L BUN 59 H (7-17) mg/dL Creatinine 2.34 H (0.52-1.04) mg/dL Glucose 103 H (74-99) mg/dL Calcium 9.4 (8.4-10.2) mg/dL AST 30 (14-36) U/L ALT 15 (4-34) U/L Alkaline Phosphatase 127 H (38-126) U/L Total Protein 7.3 (6.3-8.2) g/dL Albumin 3.4 L (3.5-5.0) g/dL Calcium panel 03/14/21 Range/Units 01:18 Calcium 9.4 (8.4-10.2) mg/dL Albumin 3.4 L (3.5-5.0) g/dL Pituitary panel 03/14/21 Range/Units 01:18 Sodium 128 L (137-145) mmol/L Potassium 5.5 H (3.5-5.1) mmol/L Chloride 97 L (98-107) mmol/L Carbon Dioxide 17 L (22-30) mmol/L BUN 59 H (7-17) mg/dL Creatinine 2.34 H (0.52-1.04) mg/dL Glucose 103 H (74-99) mg/dL Calcium 9.4 (8.4-10.2) mg/dL Adrenal panel 03/14/21 Range/Units 01:18 Sodium 128 L (137-145) mmol/L Potassium 5.5 H (3.5-5.1) mmol/L Chloride 97 L (98-107) mmol/L Carbon Dioxide 17 L (22-30) mmol/L BUN 59 H (7-17) mg/dL Creatinine 2.34 H (0.52-1.04) mg/dL Glucose 103 H (74-99) mg/dL Calcium 9.4 (8.4-10.2) mg/dL Total Bilirubin 0.9 (0.2-1.3) mg/dL AST 30 (14-36) U/L ALT 15 (4-34) U/L Alkaline Phosphatase 127 H (38-126) U/L Total Protein 7.3 (6.3-8.2) g/dL Albumin 3.4 L (3.5-5.0) g/dL - Imaging CT scan - abdomen: report reviewed, image reviewed CT scan - pelvis: report reviewed, image reviewed Assessment and Plan Assessment: Impression: Invasive and metastatic cervical cancer. Urinary incontinence. The hydronephrosis probably due to the cervical cancer obstructing the ureters. She will vesicle vaginal fistula. Recommendations: The patient should have endoscopy with potential stent placements and further assessment to see if indeed there is a fistula. Again I do not know why she had a suprapubic tube level on whether one is necessary. We discussed the logic evaluation here versus being transferred to [place] for a further team approach of both the [employer] oncology and urology at [facility]. She is truly interested in going to [place]. I do not think there is any emergency to doing this today or tomorrow but in the near future this can be assessed. If further urologic care is required please feel free to contact our office. Time with Patient: Greater than 30
[2021-03-15] MEDS: SODIUM CHLORIDE 0.9% 1,000 ML IV SCH ×3 (02:00→17:57)
[2021-03-15] MEDS: ONDANSETRON 4 MG/2 ML VIAL IVP PRN ×2 (09:01→17:56)
--- NOTE | 2021-03-15 09:08 | P.CONS ---
History of Present Illness - Reason for Consult Consult date: 03/15/21 - Chief Complaint Nausea , vomiting, pain - History of Present Illness Shanna is a 50 years old female with the history of cervical cancer diagnosed in 2007, status post definitive chemoradiation, she received 5400 cGy to the parametrium, 5040 cGy to the pelvis, and 3089 cGy HDR brachytherapy to the cervix. The patient was doing well up until about a year ago she started feeling pain and pressure in her pelvis, she presented to the [place] ER and she was told she has a vaginal mass with complete urinary retention, she had suprapubic catheter placement and underwent under anesthesia exam with biopsies , pathology came back moderately \differentiated squamous cell carcinoma, the biopsy was done in September 2020, unfortunately she didn't follow-up with her oncology for insurance coverage issues. In 01/08/2021 she had PET scan that showed markedly increased hypermetabolic activity in the region of the cervix extend into the vagina and right labia majora, with SUV 15.4, there was hypermetabolic enlarged right inguinal lymph node measures 2.7 x 1.8 cm with SUV 7.3 there is another smaller right inguinal lymph node is mildly hypermetabolic, there was mild hypermetabolic activity in the right external iliac lymph node measures 1.6 x 0.8 cm, all of these lymph nodes suspicious for metastatic disease. The patient underwent reirradiation for palliative intent to control the bleeding and pain, she has received 2760 cGy , she still has 1 more treatment to complete her course of palliation radiotherapy. The patient was admitted to the hospital for abdomen pain, nausea, and vomiting. It was found out that suprapubic catheter is not functional, it was removed, currently the patient has incontinence and leaking urine constantly . CAT scan of the pelvis and abdomen without contrast showed bilateral hydronephrosis and hydroureter , the urinary bladder is almost empty , there is thickening in the bladder wall probably related to cancer infiltration. Today the patient is doing fairly well, her pain is controlled using pain medication, there is no bleeding. Review of Systems Constitutional: Reports as per HPI Ears, nose, mouth and throat: Reports as per HPI Breasts: Reports as per HPI Cardiovascular: Reports as per HPI Respiratory: Reports as per HPI Gastrointestinal: Reports as per HPI, Reports diarrhea Genitourinary: Reports difficulty voiding, Reports incomplete emptying Menstruation: Reports as per HPI Musculoskeletal: Reports as per HPI Integumentary: Reports as per HPI Neurological: Reports as per HPI, Reports gait dysfunction Endocrine: Reports as per HPI Allergic/Immunologic: Reports as per HPI Past Medical History Past Medical History: Cancer Additional Past Medical History / Comment(s): CERVICAL CANCER-CHEMO AND RADIATION History of Any Multi-Drug Resistant Organisms: MRSA Year Discovered:: 11/11/20 MDRO Source:: URINE MRSA Past Surgical History: Cholecystectomy, Tubal Ligation Past Anesthesia/Blood Transfusion Reactions: No Reported Reaction Past Psychological History: No Psychological Hx Reported Smoking Status: Former smoker Past Alcohol Use History: None Reported Past Drug Use History: Marijuana - Past Family History Brother(s) Family Medical History: Cancer Father Family Medical History: Cancer Medications and Allergies Home Medications Medication Instructions Recorded Confirmed Type fentaNYL 100MCG/HR PATCH 1 patch TRANSDERM Q72H 03/14/21 03/14/21 History [Duragesic 100MCG/HR] oxyCODONE HCL [oxyCODONE HCL (IR)] 10 mg PO Q6H PRN 03/14/21 03/14/21 History Allergies Allergy/AdvReac Type Severity Reaction Status Date / Time cisplatin Allergy Anaphylaxis Verified 03/14/21 06:34 Penicillins Allergy Anaphylaxis Verified 03/14/21 06:34 Sulfa (Sulfonamide Allergy Unknown Verified 03/14/21 06:34 Antibiotics) Physical Exam Vitals: Vital Signs Temp Pulse Pulse Resp BP BP Pulse Ox 03/15/21 04:27 98.7 F 73 20 138/75 96 03/14/21 19:20 98.1 F 76 20 142/78 98 03/14/21 12:46 98 F 79 16 145/83 97 Intake and Output 03/14/21 03/15/21 03/15/21 22:59 06:59 14:59 Intake Total 1610 Balance 1610 Intake: Intake, IV Titration 1610 Amount Sodium Chloride 0.9% 1, 1560 000 ml @ 130 mls/hr IV . Q7H42M [facility] Rx#:[id number] cefTRIAXone 1 gm In 50 Sodium Chloride 0.9% 50 ml @ 100 mls/hr IVPB Q12H [facility] Rx#:[id number] Other: Voiding Method Diaper Incontinent # Voids 1 1 # Bowel Movements 1 Weight 70.307 kg - Constitutional General appearance: average body habitus - EENT Eyes: PERRLA - Neck Neck: no lymphadenopathy - Respiratory Respiratory: bilateral: CTA - Cardiovascular Rhythm: regular - Gastrointestinal General gastrointestinal: no organomegaly, soft, no tenderness - Integumentary Integumentary: normal - Neurologic Neurologic: CNII-XII intact - Musculoskeletal Musculoskeletal: generalized weakness - Psychiatric Psychiatric: A&O x's 3, appropriate affect Results CBC & Chem 7: 03/14/21 01:18 03/14/21 01:18 Labs: Microbiology - Last 24 Hours (Table) 03/14/21 04:20 Blood Culture - Preliminary Blood No Growth after 24 hours 03/14/21 04:00 Blood Culture - Preliminary Blood No Growth after 24 hours Assessment and Plan Assessment: 50 years old with 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 Plan: Images reviewed with the radiologist , the patient has diffuse bladder infiltra tion with the cancer probably causing obstruction especially of the posterior wall of the bladder and blocking the orifices of ureters . Due to patient progression disease, her radiotherapy would be discontinue. the patient needs to be have cystoscopy with possible stent placement. I agree with the urologist to transfer the patient to [facility] for further evaluation under the care of [employer] correlation she and urology teams Time with Patient: Greater than 30
[2021-03-15 09:31] LABS: Anisocytosis Slight; HCT 29.5 % (34.0-46.0); Hypochromasia Slight; MCHC 31.7 g/dL (31.0-37.0); MCV 82.1 fL (80.0-100.0); Mean Platelet Volume 7.2; Platelet Count 373 k/uL (150-450); RDW 16.2 % (11.5-15.5)
[2021-03-15 09:34] LABS: HGB 9.4 gm/dL (11.4-16.0)
[2021-03-15 09:45] LABS: African American GFR (CKD) 44 (>60 ml/min/1.73 sqM); Anion Gap 7 mmol/L; Blood Urea Nitrogen 34 mg/dL (7-17); Calcium 8.2 mg/dL (8.4-10.2); Carbon Dioxide 16 mmol/L (22-30); Chloride 112 mmol/L (98-107); Glucose 97 mg/dL (74-99); Non-African American GFR(CKD) 38 (>60 ml/min/1.73 sqM); Potassium 3.6 mmol/L (3.5-5.1); Sodium 135 mmol/L (137-145)
--- NOTE | 2021-03-15 11:10 | P.PN ---
Subjective Progress Note Date: 03/15/21 The patient is in the hospital with nausea and vomitting as well as advancing cervical cancer despite treatment. SHe had an sp tube that was taken out of her bladder. The plan was to send her back to [facility] was continued care. But due to the progression of the cancer despite treatment they recommened hospice care. /rick asked that I replace the sp tube. I spoke with the patient and she declines both sp and urethral catheters. Therefore i didnt place one. Objective - Vital Signs Vital signs: Vital Signs Temp 98.7 F 03/15/21 04:27 Pulse 73 03/15/21 04:27 Resp 20 03/15/21 04:27 BP 138/75 03/15/21 04:27 Pulse Ox 96 03/15/21 04:27 Intake & Output 03/14/21 03/15/21 03/15/21 18:59 06:59 18:59 Intake Total 1610 Balance 1610 Weight 70.307 kg Intake: Intake, IV Titration 1610 Amount Sodium Chloride 0.9% 1, 1560 000 ml @ 130 mls/hr IV . Q7H42M [facility] Rx#:[id number] cefTRIAXone 1 gm In 50 Sodium Chloride 0.9% 50 ml @ 100 mls/hr IVPB Q12H [facility] Rx#:[id number] Other: Voiding Method Diaper Diaper Incontinent Incontinent # Voids 4 1 # Bowel Movements 1 - Labs CBC & Chem 7: 03/15/21 09:10 03/15/21 09:10 Labs: Abnormal Lab Results - Last 24 Hours (Table) 03/15/21 03/15/21 Range/Units 09:10 09:10 RBC 3.60 L (3.80-5.40) m/uL Hgb 9.4 L D (11.4-16.0) gm/dL Hct 29.5 L (34.0-46.0) % RDW 16.2 H (11.5-15.5) % Sodium 135 L (137-145) mmol/L Chloride 112 H (98-107) mmol/L Carbon Dioxide 16 L (22-30) mmol/L BUN 34 H (7-17) mg/dL Creatinine 1.55 H (0.52-1.04) mg/dL Calcium 8.2 L (8.4-10.2) mg/dL Microbiology - Last 24 Hours (Table) 03/14/21 04:20 Blood Culture - Preliminary Blood No Growth after 24 hours 03/14/21 04:00 Blood Culture - Preliminary Blood No Growth after 24 hours
--- NOTE | 2021-03-15 14:13 | P.DS ---
Providers Date of admission: 03/14/21 02:29 Expected date of discharge: 03/15/21 Attending physician: Ayush Carrasco Consults: 03/14/21 09:55 Consult Physician Urgent Consulting Provider: Rhett Gan Consult Reason/Comments: obstructed sp cath- change,acute renal failure poss tumor/ureterinvolvement Do you want consulting provider notified?: Yes 03/14/21 09:58 Consult Physician Routine Consulting Provider: Edmundo Caldwell Consult Reason/Comments: onc rad,cervival ca/tumor Do you want consulting provider notified?: Yes 03/14/21 10:10 Consult Physician Routine Consulting Provider: Sherrie Juares Consult Reason/Comments: cervical ca, new pelvis tumor Do you want consulting provider notified?: Yes Primary care physician: Ayush Carrasco [facility] Course: Final Diagnoses: Acute renal failure secondary to obstructed SP catheter. Patient fired [employer] reports last changed to 4 weeks ago, not draining 1 week. Hydronephrosis probably secondary to cervical cancer obstructing the ureters.declined Sp Cath. replacement. Possible Sepsis secondary to Acute UTI, culture pending Leukocytosis Dehydration secondary to nausea, Hyperkalemia secondary to acute renal failure History of cervical cancer,metastatic New pelvic mass reported per CT, with mild hydronephrosis and hydroureter, possibly related to tumor involvement of the distal ureters Ongoing nicotine dependence Marijuana use Hospital course: This is a 50-year-old female with history of cervical cancer, status post chemoradiation, chronic diarrhea, history of MRSA, ongoing nicotine dependence, marijuana use and multiple other medical issues. Reports she follows with oncologist, Dr. Guzman at [facility], last radiation treatment Friday. Nausea worsened accompanied by increased weakness. Patient had fired [employer] and reports suprapubic catheter last changed 3-4 weeks ago and has not been draining 1 week.Reports she ran out of her nausea pills. Denies pain states controlled on current home meds regimen. Denies any fever or chills. Denies any cough chest pain or shortness of breath. Denies any lightheadedness dizziness or focal deficits. CT of abdomen and pelvis reported new pelvic mass consistent with tumor in a patient with history of cervical cancer, mild hydronephrosis and hydroureter, tumor involvement possible of the distal ureters. Afebrile, WBC 18.2. Hemoglobin 11.6, platelets 335, sodium 128, potassium 5.5, BUN 59, creatinine 2.34, albumin 3.4. maintained on IV antibiotic treatment for UTI, IV fluid hydration, and pain management.Declined suprapubic catheter placement as per urology.initially had planned to transfer patient to [facility]. Dr. Carrasco in an attempt to transfer,discussed case with at [facility]. Dr. Yen stated due to the progression of the cancer,despite treatment,they recommended hospice care instead of transfer.Discussed with patient,who has changed her CODE STATUS to no code, no CPR, no intubation and wishes to proceed with hospice. Hospice consulted. Patient will be discharged home today in a stable condition with guarded prognosis either to hospice house or home with daughter. The impression and plan of care has been dictated as directed. : I performed a history and examination of this patient, discussed the same with the dictator. I agree with the dictator's note ,documented as a scribe. Any additional findings or plans will be noted. Patient Condition at Discharge: Stable Plan - Discharge Summary Discharge Rx Participant: No New Discharge Prescriptions: New Cefuroxime Axetil [Ceftin] 500 mg PO BID 5 Days #10 tab Ondansetron Odt [Zofran Odt] 4 mg PO Q8HR PRN #60 tab PRN Reason: Nausea Continue oxyCODONE HCL [oxyCODONE HCL (IR)] 10 mg PO Q6H PRN PRN Reason: Pain fentaNYL 100MCG/HR PATCH [Duragesic 100MCG/HR] 1 patch TRANSDERM Q72H Discharge Medication List fentaNYL 100MCG/HR PATCH [[employer] 100MCG/HR] 1 patch TRANSDERM Q72H 03/14/21 [History] oxyCODONE HCL [oxyCODONE HCL (IR)] 10 mg PO Q6H PRN 03/14/21 [History] Cefuroxime Axetil [Ceftin] 500 mg PO BID 5 Days #10 tab 03/15/21 [Rx] Ondansetron Odt [Zofran Odt] 4 mg PO Q8HR PRN #60 tab 03/15/21 [Rx] Follow up Appointment(s)/Referral(s): Ayush Carrasco Jr, DO [Primary Care Provider] - As Needed Activity/Diet/Wound Care/Special Instructions: hospice
[2021-03-15 20:45] VITALS: RESP 20
[2021-03-16] MEDS: ONDANSETRON 4 MG/2 ML VIAL IVP PRN ×2 (00:34→09:23)
[2021-03-16] MEDS: SODIUM CHLORIDE 0.9% 1,000 ML IV SCH ×2 (00:44→08:38)
[2021-03-16 07:03] VITALS: BP 132/73; TEMP 98.9
[2021-03-16 10:14] VITALS: PULSE 62
== END 2021-03-16 10:25 | disposition home or self-care (01) | DRG 754 ==
LOC: SUPCPDRO → EC → 5NMEDONC 02:29
PROVIDERS: ADMIT Family Medicine; ATTEND Family Medicine
DX: C53.9 Malignant neoplasm of cervix uteri, unspecified (principal); A41.9 Sepsis, unspecified organism; N13.6 Pyonephrosis; N17.9 Acute kidney failure, unspecified; C79.82 Secondary malignant neoplasm of genital organs; C77.5 Secondary and unspecified malignant neoplasm of intrapelvic lymph nodes; N82.0 Vesicovaginal fistula; T83.098A Other mechanical complication of other urinary catheter, initial encounter; D72.829 Elevated white blood cell count, unspecified; R53.1 Weakness; Z51.5 Encounter for palliative care; E86.0 Dehydration; K52.9 Noninfective gastroenteritis and colitis, unspecified; R11.2 Nausea with vomiting, unspecified; E87.5 Hyperkalemia; F17.210 Nicotine dependence, cigarettes, uncomplicated; R32 Unspecified urinary incontinence; Z20.822 Contact with and (suspected) exposure to COVID-19; Z92.3 Personal history of irradiation; Z86.14 Personal history of Methicillin resistant Staphylococcus aureus infection; Z92.21 Personal history of antineoplastic chemotherapy; Z88.0 Allergy status to penicillin; Z88.2 Allergy status to sulfonamides; Z90.49 Acquired absence of other specified parts of digestive tract; Z98.51 Tubal ligation status
CPT/HCPCS: 36415; 74176; 80048; 80053; 83690; 83735; 85025; 85027; 87040; 87635; 96365; 96366; 96375; 99285